=== PATIENT | male | born 1970 | race Caucasian/White ===

== ENCOUNTER 2021-10-14 22:53 | Emergency (ER) | payer BC ==
[2021-10-15] MEDS ORDERED: Ondansetron 4 MG/2 ML SDV IVPUSH ONE (00:19)
[2021-10-15] MEDS ORDERED: LORazepam 2 MG/ML SDV IVPUSH ONE (00:20)
[2021-10-15] MEDS ORDERED: MVI, Adult with Vitamin K 10 ML in Dextrose 5%-Lactated Ringers 1,000 ML IV SCH ×2 (00:30)
[2021-10-15] MEDS ORDERED: Potassium Chloride 10 MEQ in Premix Bag 1 BAG IV ONE (02:13)
[2021-10-15] MEDS ORDERED: Magnesium Oxide 400 MG Tab PO ONE (02:18)
[2021-10-15] MEDS ORDERED: Potassium Chloride 20 MEQ Tab.ER PO ONE ×2 (02:19→06:36)
[2021-10-15] MEDS ORDERED: Sodium Chloride 0.9% 1,000 ML IV SCH (02:30)
[2021-10-15] MEDS: Potassium Chloride 10 MEQ in Premix Bag 1 BAG IV SCH ×4 (02:33→05:43)
== END 2021-10-15 06:54 | disposition home or self-care (01) ==
LOC: JD.ED 22:53
DX: F10.10 Alcohol abuse, uncomplicated (principal); F41.9 Anxiety disorder, unspecified; I10 Essential (primary) hypertension; E87.6 Hypokalemia; Z72.0 Tobacco use; Y90.5 Blood alcohol level of 100-119 mg/100 ml
CPT/HCPCS: 36415; 80053; 80307; 83735; 85025; 85610; 96365; 96366; 96367; 96375; 99283; A9270; J2060; J2405; J3480; J7030; J7121

== ENCOUNTER 2022-07-14 16:53 | Emergency (ER) | payer BC ==
[2022-07-14] MEDS ORDERED: Ondansetron 4 MG Tab.DIS PO ONE (17:50)
[2022-07-14] MEDS ORDERED: Metoprolol Tartrate 50 MG Tab PO ONE (17:50)
[2022-07-14] MEDS ORDERED: LORazepam 1 MG Tab PO ONE ×2 (17:50→19:08)
[2022-07-14] MEDS ORDERED: hydrALAZINE 10 MG Tab PO STA (20:18)
[2022-07-14] MEDS ORDERED: Metoclopramide 10 MG/2 ML SDV IVPUSH STA (20:57)
[2022-07-14] MEDS ORDERED: hydrALAZINE 20 MG/ML SDV IVPUSH STA (20:58)
== END 2022-07-14 22:20 | disposition home or self-care (01) ==
LOC: JD.ED 16:53
DX: F10.930 Alcohol use, unspecified with withdrawal, uncomplicated (principal); I10 Essential (primary) hypertension; Z79.899 Other long term (current) drug therapy
CPT/HCPCS: 96374; 96375; 99283; A9270; J0360; J2765

== ENCOUNTER 2022-09-21 17:54 | Emergency (ER) | payer BC ==
[2022-09-21] MEDS ORDERED: LORazepam 1 MG Tab PO ONE (18:20)
== END 2022-09-21 18:40 | disposition home or self-care (01) ==
LOC: JD.ED 17:54
DX: F41.9 Anxiety disorder, unspecified (principal); I10 Essential (primary) hypertension; Z72.0 Tobacco use; Z79.899 Other long term (current) drug therapy
CPT/HCPCS: 99283; A9270

== ENCOUNTER 2022-12-26 15:58 | Emergency (ER) | payer BC ==
[2022-12-26] MEDS ORDERED: LORazepam 1 MG Tab PO ONE (16:38)
[2022-12-26] MEDS ORDERED: Ondansetron 4 MG Tab.DIS PO ONE (16:38)
[2022-12-26 17:27] LABS: BASOPHILS ABSOLUTE AUTO 0.01 K/mm3 (0.01-0.08); BASOPHILS PERCENT AUTO 0.1 % (0.1-1.2); EOSINOPHILS PERCENT AUTO 0 (0.8-7.0); HEMATOCRIT 42.1 % (40.1-51.0); HEMOGLOBIN 14.5 gm/dl (13.7-17.5); IMMATURE GRAN ABSOLUTE AUTO 0.01 K/mm3 (0.00-0.10); IMMATURE GRAN PERCENT AUTO 0.1 % (<=1.0); LYMPHOCYTES ABSOLUTE AUTO 0.97 K/mm3 (1.32-3.57); LYMPHOCYTES PERCENT AUTO 14.5 % (21.8-53.1); MEAN CORPUSCULAR HGB CONC 34.4 g/dl (32.2-35.5); MEAN CORPUSCULAR VOLUME 92.9 fl (79.0-92.2); MEAN PLATELET VOLUME 11.6 fl (9.4-12.3); MONOCYTES ABSOLUTE AUTO 0.63 K/mm3 (0.30-0.82); MONOCYTES PERCENT AUTO 9.4 % (5.3-12.2); NEUTROPHILS ABSOLUTE AUTO 5.08 K/mm3 (1.78-5.38); NEUTROPHILS PERCENT AUTO 75.9 % (34.0-67.9); PLATELET COUNT,PLT 103 K/mm3 (163-337); RED BLOOD CELL COUNT 4.53 M/mm3 (4.63-6.08)
[2022-12-26 17:37] LABS: BARBITURATE SCREEN,URINE NEGATIVE (CUTOFF=200); BENZODIAZEPINES SCREEN,URINE NEGATIVE (CUTOFF=150); BUPRENORPHINE SCREEN,URINE NEGATIVE (CUTOFF=10); METHADONE SCREEN, URINE NEGATIVE (CUT0FF=200); METHAMPHETAMINES SCREEN, URINE NEGATIVE (CUTOFF=500); OXYCODONE SCREEN,URINE NEGATIVE (CUT0FF=100); PROPOXYPHENE SCREEN,URINE NEGATIVE (CUTOFF=300); THC SCREEN,URINE 20 NG/ML NEGATIVE (CUTOFF=50)
[2022-12-26 17:38] LABS: AMPHETAMINES SCREEN, URINE NEGATIVE (CUTOFF=500)
[2022-12-26 18:51] LABS: A/G RATIO 0.6 (1-2); ALANINE AMINOTRANSFERASE,ALT 237 U/L (16-63); ALBUMIN 2.9 g/dl (3.4-5.0); ALKALINE PHOSPHATASE 127 U/L (46-116); ANION GAP 9.2 (5-15); ASPARTATE AMNIOTRANSFERASE,AST 152 U/L (15-37); BILIRUBIN TOTAL 2.3 mg/dL (0.2-1.0); BLOOD UREA NITROGEN,BUN 25 mg/dL (7-18); BUN/CREATININE RATIO 10.4 (14-18); CALCIUM 8.7 mg/dL (8.5-10.1); CARBON DIOXIDE,CO2 29 mEq/L (21-32); CHLORIDE,CL 97 mEq/L (98-107); CREATININE 2.4 mg/dL (0.7-1.3); ESTIMATED GFR 31 mL/min (>60); GLUCOSE RANDOM 150 mg/dL (70-99); PROTEIN TOTAL,TP 8.1 g/dl (6.4-8.2); SODIUM,NA 133 mEq/L (136-145)
[2022-12-26 18:53] LABS: POTASSIUM,K 2.2 mEq/L (3.5-5.1)
[2022-12-26] MEDS ORDERED: Potassium Chloride 20 MEQ Tab.ER PO ONE (19:01)
== END 2022-12-26 19:47 | disposition home or self-care (01) ==
LOC: JD.ED 15:58
DX: F10.930 Alcohol use, unspecified with withdrawal, uncomplicated (principal); I10 Essential (primary) hypertension; Z79.899 Other long term (current) drug therapy
CPT/HCPCS: 36415; 80053; 80306; 80307; 85025; 99284; A9270; 99283

== ENCOUNTER 2022-12-27 16:01 | Emergency (ER) | payer BC | END 2022-12-27 18:38 | disposition home or self-care (01) | LOC: JD.ED 16:01 | DX: F10.930 Alcohol use, unspecified with withdrawal, uncomplicated (principal); I10 Essential (primary) hypertension; Z79.899 Other long term (current) drug therapy | CPT/HCPCS: 99284 ==

== ENCOUNTER 2023-04-29 17:31 | Emergency (ER) | payer BC ==
[2023-04-29 22:11] LABS: BASOPHILS PERCENT AUTO 0.3 % (0.0-1.0); EOSINOPHILS PERCENT AUTO 0.3 % (0.0-6.0); HEMATOCRIT 38.9 % (42.0-52.0); HEMOGLOBIN 13.7 gm/dl (14.0-18.0); IMMATURE GRAN ABSOLUTE AUTO 0.03 K/mm3 (0.00-0.05); IMMATURE GRAN PERCENT AUTO 0.3 % (0.0-0.4); LYMPHOCYTES ABSOLUTE AUTO 2.2 K/mm3 (1.0-4.8); LYMPHOCYTES PERCENT AUTO 19.3 % (24.0-44.0); MEAN CORPUSCULAR HEMOGLOBIN 32.1 pg (28.0-32.0); MEAN CORPUSCULAR HGB CONC 35.2 g/dl (32.0-36.0); MEAN CORPUSCULAR VOLUME 91.1 fl (83.0-99.0); MONOCYTES PERCENT AUTO 8.4 % (0.0-8.0); NEUTROPHILS ABSOLUTE AUTO 8.3 K/mm3 (1.8-7.7); NEUTROPHILS PERCENT AUTO 71.4 % (41.0-71.0); PLATELET COUNT,PLT 151 K/mm3 (150-400); RED BLOOD CELL COUNT 4.27 M/mm3 (4.52-5.90); WHITE BLOOD CELL COUNT,WBC 11.57 K/mm3 (3.9-11.3)
[2023-04-29 22:45] LABS: APPEARANCE,URINE CLEAR (Clear); BILIRUBIN,URINE NEGATIVE (Negative); COLOR,URINE YELLOW (Yellow); GLUCOSE,URINE NEGATIVE (Negative); KETONES,URINE TRACE (Negative); LEUKOCYTE ESTERASE,URINE NEGATIVE (Negative); NITRITE,URINE NEGATIVE (Negative); OCCULT BLOOD,URINE NEGATIVE (Negative); PROTEIN,URINE 1+ (Negative); UROBILINOGEN,URINE 0.2 (0.2-1.0)
[2023-04-29 22:54] LABS: A/G RATIO 0.6 (1-2); ALBUMIN 3.7 g/dl (3.4-5.0); ANION GAP 15.4 (5-15); BILIRUBIN TOTAL 0.9 mg/dL (0.2-1.0); BUN/CREATININE RATIO 11.8 (14-18); CALCIUM 9.1 mg/dL (8.5-10.1); CREATININE 1.7 mg/dL (0.7-1.3); EST CRCL DRUG DOSING (CG) 46.44 mL/min; MAGNESIUM 2.7 mg/dL (1.8-2.4); POTASSIUM,K 3.4 mEq/L (3.5-5.1); PROTEIN TOTAL,TP 9.7 g/dl (6.4-8.2); TSH 1.228 uIU/mL (0.358-3.74)
[2023-04-29 22:55] LABS: BARBITURATE SCREEN,URINE NEGATIVE (CUTOFF=200); BENZODIAZEPINES SCREEN,URINE PRESUMPTIVE POSITIVE (CUTOFF=150); BUPRENORPHINE SCREEN,URINE NEGATIVE (CUTOFF=10); METHADONE SCREEN, URINE NEGATIVE (CUT0FF=200); METHAMPHETAMINES SCREEN, URINE NEGATIVE (CUTOFF=500); OXYCODONE SCREEN,URINE NEGATIVE (CUT0FF=100); PROPOXYPHENE SCREEN,URINE NEGATIVE (CUTOFF=300); THC SCREEN,URINE 20 NG/ML NEGATIVE (CUTOFF=50)
[2023-04-29 23:00] LABS: BACTERIA,URINE FEW /hpf (FEW); HYALINE CASTS,URINE 0-5 /lpf (0-5); MUCUS,URINE FEW /hpf (FEW); RBC,URINE 0-5 /hpf (0-5); SQUAMOUS EPITHELIAL CELLS,UR 0-5 /hpf (0-5); WBC,URINE 0-5 /hpf (0-5)
[2023-04-29 23:02] LABS: AMPHETAMINES SCREEN, URINE NEGATIVE (CUTOFF=500)
[2023-04-29] MEDS ORDERED: LORazepam 1 MG Tab PO ONE (23:18)
== END 2023-04-29 23:30 | disposition home or self-care (01) ==
LOC: JD.ED 17:31
DX: F41.9 Anxiety disorder, unspecified (principal); I10 Essential (primary) hypertension; Z79.899 Other long term (current) drug therapy
CPT/HCPCS: 36415; 80053; 80306; 81001; 83735; 84443; 85025; 99283; A9270

== ENCOUNTER 2025-03-19 14:18 | Emergency (ER) | payer BC ==
[2025-03-19] MEDS: Potassium Chloride 20 MEQ Tab.ER PO ONE (15:05)
[2025-03-19 15:34] LABS: BLOOD UREA NITROGEN,BUN 22.0 mg/dL (7-18); CREATINE KINASE,CK 442.0 U/L (39-308); CREATININE 1.7 mg/dL (0.7-1.3); EST CRCL DRUG DOSING (CG) 45.36 mL/min; ESTIMATED GFR 47.0 mL/min (>60)
[2025-03-19 16:07] LABS: CARBON DIOXIDE,CO2 18.0 mEq/L (21-32); SODIUM,NA 139.0 mEq/L (136-145)
[2025-03-19 16:08] LABS: POTASSIUM,K 1.9 mEq/L (3.5-5.1)
[2025-03-19 16:09] LABS: CHLORIDE,CL 109.0 mEq/L (98-107)
[2025-03-20 10:00] LABS: GLUCOSE RANDOM 106.0 mg/dL (70-99)
== END 2025-03-19 19:20 | disposition home or self-care (01) ==
LOC: JD.ED 14:18
DX: E87.6 Hypokalemia (principal); N28.9 Disorder of kidney and ureter, unspecified; I10 Essential (primary) hypertension; F17.210 Nicotine dependence, cigarettes, uncomplicated; Z79.899 Other long term (current) drug therapy
CPT/HCPCS: 36415; 80048; 82550; 83735; 93005; 96365; 96366; 99285; A9270; J3480; J7030; 99283